=== PATIENT | female | born 1960 | race Caucasian/White ===

== ENCOUNTER 2016-10-26 10:06 | Emergency (ER) | payer OTHER ==
[~2016-10-26] VITALS: Ht 152.4 cm; Wt 81.0 kg
[~2016-10-26 10:06] MED LIST: KENC1 TOP; TRIA15OI9 TOP
[2016-10-26 10:07] VITALS: Ht 152.4 cm; Wt 81.0 kg
[2016-10-26 11:03] VITALS: BP 165/95; PULSE 78; RESP 18; TEMP 98
[2016-10-26] MEDS ORDERED: ONDANSETRON (ODT) 4 MG TAB ODT STA (11:11)
[2016-10-26] MEDS ORDERED: ONDA4TAB14 PO (11:12)
--- NOTE | 2016-10-26 13:37 | ERD ---
ER Documentation Chief Complaint Date/Time DATE: 10/26/16 TIME: 13:36 Chief Complaint ABD PAIN WITH N/V/D SINCE YESTERDAY POSSIBLE FOOD POISONING HPI Patient is a 56-year-old female with no medical problems who presents with vomiting. The patient says that she feels like she has food poisoning. She went to [employer] yesterday and had a coconut drink and ate a sausage cate which he sandwich. 30 minutes later she said she started vomiting. It was nonbloody and nonbilious. She said that she cannot keep anything down today either. She has mild diarrhea with loose stool. She has no fevers. She has had no abdominal pain. Upon review of old medical records this is the patient' s fourth visit to the ER since 2015. ROS All systems reviewed and are negative except as per history of present illness. Medications Home Meds Active Scripts Ondansetron (Ondansetron Odt) 4 Mg Tab.rapdis, 4 MG PO Q6H Y for NAUSEA AND/OR VOMITING, #30 TAB Prov:NELLY FLORES MD 10/26/16 Triamcinolone Acetonide (Triamcinolone Acetonide) 0.5% - 15 Gm Oint..gm., 1 APPLIC TOP BID, #1 TUB Prov:MARY JIMENES DO 06/14/16 Triamcinolone Acetonide (Triamcinolone Acetonide) 0.1% - 15 Gm Cream.gm., 1 APPLIC TOP BID, #1 TUB Prov:MARY JIMENES DO 06/14/16 Allergies Allergies: Coded Allergies: No Known Allergy (Unverified , 06/27/16) PMhx/Soc History of Surgery: No Anesthesia Reaction: No Hx Neurological Disorder: No Hx Respiratory Disorders: No Hx Cardiac Disorders: No Hx Psychiatric Problems: No Hx Miscellaneous Medical Probl: Yes (ECZEMA) Hx Alcohol Use: Yes (social) Hx Substance Use: No Hx Tobacco Use: No Smoking Status: Never smoker FmHx Family History: No diabetes Physical Exam Vitals Vital Signs Date Time Temp Pulse Resp B/P Pulse Ox O2 Delivery O2 Flow Rate FiO2 10/26/16 11:03 98.0 78 18 165/95 99 Room Air 10/26/16 10:07 98.0 87 18 165/95 99 Physical Exam Const: No acute distress Head: Atraumatic Eyes: Normal Conjunctiva ENT: Normal External Ears, Nose and Mouth. Neck: Full range of motion..~ No meningismus. Resp: Clear to auscultation bilaterally Cardio: Regular rate and rhythm, no murmurs Abd: Soft, non tender, non distended. Normal bowel sounds Skin: No petechiae or rashes Back: No midline or flank tenderness Ext: No cyanosis, or edema Neur: Awake and alert Psych: Normal Mood and Affect Results 24 hrs Current Medications Medications (Trade) Dose Ordered Sig/Eris Route PRN Reason Start Time Stop Time Status Last Admin Dose Admin Ondansetron HCl (Zofran Odt) 4 mg ONCE STAT ODT 10/26/16 11:11 10/26/16 11:12 DC 10/26/16 11:20 Procedures/MDM Patient is a 56-year-old female who presents with nausea and vomiting. The patient has no abdominal pain. She is very well-appearing and well-hydrated. I believe outpatient management is appropriate. This point I doubt appendicitis , cholecystitis, pink otitis, or bowel obstruction. I believe outpatient management is appropriate. However the patient will need to follow-up closely with a primary doctor within 24 hours for reevaluation. She will be given Zofran for symptomatically relief. Departure Diagnosis: Primary Impression: Nausea and vomiting Vomiting type: unspecified Vomiting Intractability: non-intractable Qualified Code: R11.2 - Non-intractable vomiting with nausea, unspecified vomiting type Condition: Fair Patient Instructions: Nausea and Vomiting-Adult Referrals: Dr. Stover Additional Instructions: Call your primary care doctor TOMORROW for an appointment during the next 1-2 days.See the doctor sooner or return here if your condition worsens before your appointment time. NELLY FLORES MD Oct 26, 2016 13:37
== END 2016-10-26 11:43 | disposition home or self-care (01) ==
LOC: E/R 10:06
DX: R11.2 Nausea with vomiting, unspecified (principal)
CPT/HCPCS: 99283

== ENCOUNTER 2016-11-21 13:29 | Emergency (ER) | payer OTHER ==
[~2016-11-21] VITALS: Ht 162.6 cm; Wt 72.0 kg
[~2016-11-21 13:29] MED LIST changes: +ONDA4TAB14 PO
[2016-11-21 13:51] VITALS: Ht 162.6 cm; Wt 72.0 kg
[2016-11-21] MEDS ORDERED: SOD CHLORIDE 0.9% 1,000 ML IV STA (17:59)
[2016-11-21] MEDS ORDERED: DICLOFENAC SODIUM 37.5 MG/ML VIAL IV STA (17:59)
--- NOTE | 2016-11-21 18:12 | ERD ---
ER Documentation Chief Complaint Date/Time DATE: 11/21/16 TIME: 18:10 Chief Complaint Pt with exertional SOB and painful inspiration X 2 days. HPI This is a very pleasant 56-year-old -[place] female with no past medical history that presents to the emergency department complaining of shortness of breath for the past 2 days. The patient indicates that the shortness of breath is worse with exertion. She states she can only walk a few steps before becoming short of breath. She also indicates that she is experiencing pleuritic chest pain in addition to the shortness of breath. She denies any recent travel or prolonged immobilization. She has no calf tenderness or swelling. She has had no fevers no shaking or chills. She smokes roughly 1 pack of tobacco per month. She has not experienced any hemoptysis hematemesis or melanotic stools. She denies any weight loss. She denies any swelling of her lower extremities. She denies any rashes. She has no chest pressure that radiates to the neck arm back or jaw peer ROS All systems reviewed and are negative except as per history of present illness. Medications Home Meds Reported Medications Aspirin (Aspirin Low Dose) 81 Mg Tablet.dr, 81 MG PO DAILY, #30 TAB 11/21/16 Ranitidine Hcl* (Zantac*) Unknown Strength Tablet, MG PO HS, #30 TAB 11/21/16 Discontinued Scripts Ondansetron (Ondansetron Odt) 4 Mg Tab.rapdis, 4 MG PO Q6H Y for NAUSEA AND/OR VOMITING, #30 TAB Prov:NELLY FLORES MD 10/26/16 Triamcinolone Acetonide (Triamcinolone Acetonide) 0.5% - 15 Gm Oint..gm., 1 APPLIC TOP BID, #1 TUB Prov:MARY JIMENES DO 06/14/16 Triamcinolone Acetonide (Triamcinolone Acetonide) 0.1% - 15 Gm Cream.gm., 1 APPLIC TOP BID, #1 TUB Prov:MARY JIMENES DO 06/14/16 Allergies Allergies: Coded Allergies: No Known Allergy (Unverified , 11/21/16) PMhx/Soc History of Surgery: No Anesthesia Reaction: No Hx Neurological Disorder: No Hx Respiratory Disorders: No Hx Cardiac Disorders: No Hx Psychiatric Problems: No Hx Miscellaneous Medical Probl: Yes (ECZEMA) Hx Alcohol Use: Yes (social) Hx Substance Use: No Hx Tobacco Use: No Physical Exam Vitals Vital Signs Date Time Temp Pulse Resp B/P Pulse Ox O2 Delivery O2 Flow Rate FiO2 11/21/16 18:30 98.3 18 135/95 98 Room Air 11/21/16 13:51 98.3 85 14 142/88 98 Physical Exam Constitutional:Well-developed. Well-nourished. HEENT:Normocephalic. Atraumatic.Pupils were equal round reactive to light. Moist mucous membranes.No tonsillar exudates. Neck: No nuchal rigidity. No lymphadenopathy. No posterior cervical spine tenderness or step-offs. Respiratory: Not using accessory muscles of respiration.Lungs were clear to auscultation bilaterally. No rhonchi. No rales. No wheezing. Cardiovascular: Regular rate regular rhythm.No murmurs. No rubs were appreciated.S1, S2 normal. Distal pulses are palpable 2+ bilaterally. GI: Abdomen was soft. Nontender. Non Distended. No pulsatile abdominal masses or bruits. No rebound. No guarding. Bowel sounds were present and normal. Muscle skeletal: Full range of motion of both the upper and lower extremities bilaterally.Normal muscle tone.No assymetrical calf tenderness or swelling. Skin: No petechia, no purpura. No lesions on the palms or the soles of the feet. No maculopapular rash. NEURO: Patient was alert, awake, orientated x3.No facial droop. Gait observed and normal with no ataxia.Speech had regular rate and rhythm. No focal neurological deficits. Result Diagram: 11/21/16181911/21/161819 Results 24 hrs Laboratory Tests Test 11/21/16 18:20 White Blood Count 7.010^3/ul Red Blood Count 4.3010^6/ul Hemoglobin 14.3g/dl Hematocrit 41.5% Mean Corpuscular Volume 96.5fl Mean Corpuscular Hemoglobin 33.3pg Mean Corpuscular Hemoglobin Concent 34.5g/dl Red Cell Distribution Width 14.0% Platelet Count 28257^3/UL Mean Platelet Volume 9.9fl Neutrophils % 56.5% Lymphocytes % 32.2% Monocytes % 5.7% Eosinophils % 4.7% Basophils % 0.6% Nucleated Red Blood Cells % 0.0/100WBC Neutrophils # 4.010^3/ul Lymphocytes # 2.310^3/ul Monocytes # 0.410^3/ul Eosinophils # 0.310^3/ul Basophils # 0.010^3/ul Nucleated Red Blood Cells # 0.010^3/ul Prothrombin Time 12.6Sec Prothrombin Time Ratio 1.0 INR International Normalized Ratio 0.94 Activated Partial Thromboplast Time 25.6Sec Sodium Level 143mmol/L Potassium Level 4.0mmol/L Chloride Level 103mmol/L Carbon Dioxide Level 26mmol/L Anion Gap 18 Blood Urea Nitrogen 16mg/dl Creatinine 0.69mg/dl Glucose Level 129mg/dl Calcium Level 9.8mg/dl Total Bilirubin 0.2mg/dl Direct Bilirubin 0.00mg/dl Indirect Bilirubin 0.2mg/dl Aspartate Amino Transf (AST/SGOT) 27IU/L Alanine Aminotransferase (ALT/SGPT) 30IU/L Alkaline Phosphatase 99IU/L Creatine Kinase 89IU/L Creatine Kinase Index 0.7 Creatinine Kinase MB (Mass) 0.58ng/ml Troponin I < 0.012ng/ml B-Type Natriuretic Peptide 33PG/ML Total Protein 10.3g/dl Albumin 4.7g/dl Globulin 5.60g/dl Albumin/Globulin Ratio 0.83 Current Medications Medications (Trade) Dose Ordered Sig/Eris Route PRN Reason Start Time Stop Time Status Last Admin Dose Admin Sodium Chloride (NS) 1,000 ml @ 1,000 mls/hr Q1H STAT IV 11/21/16 17:59 11/21/16 18:58 DC 11/21/16 18:43 Diclofenac Sodium (Dyloject) 37.5 mg ONCE STAT IV 11/21/16 17:59 11/21/16 18:09 DC 11/21/16 18:43 IV Flush 10 ml 10 ml STK-MED ONCE .ROUTE 11/21/16 20:17 11/21/16 20:18 DC 11/21/16 20:42 Sodium Chloride 100 ml @ ud STK-MED ONCE .ROUTE 11/21/16 20:17 11/21/16 20:18 DC Iohexol 0 ml @ ud STK-MED ONCE .ROUTE 11/21/16 20:17 11/21/16 20:18 DC Iohexol (Omnipaque) 100 ml @ ud STK-MED ONCE .ROUTE 11/21/16 20:17 11/21/16 20:18 DC IV Flush 10 ml 10 ml STK-MED ONCE .ROUTE 11/21/16 20:18 11/21/16 20:19 DC Sodium Chloride (NS) 100 ml @ ud STK-MED ONCE .ROUTE 11/21/16 20:18 11/21/16 20:19 DC 11/21/16 20:42 Iohexol (Omnipaque 350mg/ ml) 50 ml STK-MED ONCE .ROUTE 11/21/16 20:18 11/21/16 20:19 DC 11/21/16 20:43 IV Flush (NS 10 ml) 10 ml STK-MED ONCE .ROUTE 11/21/16 20:19 11/21/16 20:20 DC Procedures/MDM The patient presented to the emergency department with shortness of breath. My differential diagnosis included but was not limited to upper airway obstruction , CHF, pulmonary embolism, cardiac ischemia, pneumonia, pneumothorax, anemia, drug overdose, pulmonary edema, COPD or asthma. Patient placed on a director of cardiac cath lab continuous pulse oximetry and IV access was assessed by nursing staff. 12 Lead EKG tracing ordered and reviewed by myself showed: Normal sinus rhythm of 86 bpm and no arrhythmia. SD interval normal. Left axis deviation QRS duration normal. No ST segment elevation No ST segment depression. No changes consistent with acute ischemia. I did feel is necessary to obtain a CT scan of the patient's chest to rule out a pulmonary embolism. This is read by the radiologist myself and indicated followin. No CT evidence for pulmonary embolus. 2. Bibasilar scarring and right posterior medial 1.6 cm bleb 3. Mild cardiomegaly 4. Mild diffuse fatty infiltration of the liver 5. Small 5 mm left upper pole renal cortical cyst Observation Note: Time: 4 hours Family Hx: No Hypertension Evaluation: Multiple exams showed improving symptoms and no evidence of pulmonary embolism and I did feel the patient's symptoms were likely result of pleurisy. She received Toradol with significant improvement of her symptoms. The patient was discharged home in fair condition. They were instructed to return to the emergency department at any time if there was any worsening of their condition. The patient stated they would follow up with their PCP in the next 24-48 hours to initiate a suitable medication regimen under the care of their PCP as well as to allow their PCP to monitor any drug reactions. The patient was discharged home with prescriptions after they gave informed consent to the new medication. They were also fully informed by myself on the adverse effects and adverse drug interactions in order to provide adequate safeguards to prevent possible adverse reactions to medications. Departure Diagnosis: Primary Impression: Pleurisy Condition: LUISA Adan November 21, 2016 18:12
[2016-11-21 18:32] LABS: ADD SCAN DIFF NO
[2016-11-21 18:36] LABS: BASOPHILS % 0.6 % (0.0-2.0); EOSINOPHILS # 0.3 10^3/ul (0.0-0.5); EOSINOPHILS % 4.7 % (0.0-7.0); HEMATOCRIT 41.5 % (37.0-47.0); HEMOGLOBIN 14.3 g/dl (12.0-16.0); LYMPHOCYTES # 2.3 10^3/ul (0.8-2.9); LYMPHOCYTES % 32.2 % (15.0-51.0); MEAN CORPUSCULAR HEMOGLOBIN 33.3 pg (29.0-33.0); MEAN CORPUSCULAR HGB CONC 34.5 g/dl (32.0-37.0); MEAN CORPUSCULAR VOLUME 96.5 fl (82.0-101.0); MEAN PLATELET VOLUME 9.9 fl (7.4-10.4); MONOCYTE # 0.4 10^3/ul (0.3-0.9); MONOCYTES % 5.7 % (0.0-11.0); NEUTROPHILS % 56.5 % (39.0-77.0); PLATELET COUNT 285 10^3/UL (140-415)
[2016-11-21 18:48] LABS: ALBUMIN 4.7 g/dl (3.3-4.9); CHLORIDE 103 mmol/L (97-110); SODIUM 143 mmol/L (135-144)
[2016-11-21 18:50] LABS: ANION GAP 18 (8-16); ASPARTATE AMINO TRANSFERASE 27 IU/L (15-46); BILIRUBIN,INDIRECT 0.2 mg/dl (0-1.1); BILIRUBIN,TOTAL 0.2 mg/dl (0.2-1.3); CARBON DIOXIDE 26 mmol/L (21-31); CREATININE 0.69 mg/dl (0.44-1.00)
[2016-11-21] MEDS ORDERED: RANI150T9 PO (18:50)
[2016-11-21] MEDS ORDERED: ASPI-664 PO (18:50)
[2016-11-21 18:51] LABS: ALANINE AMINOTRANSFERASE 30 IU/L (13-69); ALBUMIN/GLOBULIN RATIO 0.83; ALKALINE PHOSPHATASE 99 IU/L (42-121); BLOOD UREA NITROGEN 16 mg/dl (7-20); CALCIUM 9.8 mg/dl (8.4-10.2); CREATINE KINASE 89 IU/L (23-200); GLUCOSE 129 mg/dl (70-220); TOTAL PROTEIN 10.3 g/dl (6.1-8.1)
[2016-11-21 18:59] LABS: B-TYPE NATRIURETIC PEPTIDE 33 PG/ML (0-125); CK-MB 0.58 ng/ml (0.0-2.4)
[2016-11-21 19:01] LABS: INR 0.94; PARTIAL THROMBOPLASTIN TIME 25.6 Sec (25.0-35.0); PROTIME 12.6 Sec (12.2-14.2)
[2016-11-21 19:04] LABS: TROPONIN-I < 0.012 ng/ml (0.00-0.12)
[2016-11-21] MEDS ORDERED: IOHEXOL 0 ML ONE (20:17)
[2016-11-21] MEDS ORDERED: SOD CHLORIDE 0.9% 100 ML ONE ×2 (20:17→20:18)
[2016-11-21] MEDS ORDERED: IOHEXOL 100 ML ONE (20:17)
[2016-11-21] MEDS ORDERED: IOHEXOL 350MG/ML 50 ML BTL ONE (20:18)
--- NOTE | 2016-11-21 21:20 | RADRPT ---
PROCEDURE: CTA Chest and pulmonary angiogram. CLINICAL INDICATION: Chest pain and shortness of breath. TECHNIQUE: CT scan of the chest and CT pulmonary angiogram was performed on a multidetector high-r [employer] home renov[employer] CT scanner. High-resolution thin slice coronal and sagittal imaging was obtained from the axial source images. 3-D volumetric rendered post processing was performed as well. The patient w as examined following the uncomplicated intravenous administration of 100 cc of Omnipaque-300. The i mages were reviewed on a PACS workstation. The total exam CTDI equals 60.63 mGy, and the total exam DLP equals 404.10 mGy-cm. One of the following 3 dose reduction techniques were used during this CT examination: automated exp osure control; adjustment of the mA and /or kV according to patient size; or use of iterative recons truciton technique COMPARISON: Chest x-ray 06/27/2016 FINDINGS: CT chest: The visualized base of the neck and bilateral thyroid lobes are normal. The lungs are free of pulmonary nodules, infiltrates, masses, and effusions. Bibasilar scarring is present. A right posterior medial bleb is present which measures 1.6 cm in AP dimensions. No foca l opacification, effusion, pneumothorax, edema, or nodules are seen. The central tracheobronchial t ree is clear. The mediastinum demonstrates small prevascular space nonpathologic lymph adenopathy. The vascular s tructures of the mediastinum are normal in course and caliber. The heart size is remarkable for mil d cardiomegaly. No pericardial or pleural effusions are present. The axillary, subpectoral, and arechiga praclavicular regions are unremarkable. The surrounding chest wall is unremarkable. Imaging obtained through the upper abdomen is remarkable for mild fatty infiltration of the liver. The visualized spleen, pancreas, bilateral adrenal glands are normal. The imaged kidneys demonstrat e a small 5 mm left upper pole renal cortical cyst. CT pulmonary angiogram: No thrombus, clot, filling defect, or pulmonary web is identified. The pulmonary arteries are qiana l in caliber and morphology. No filling defect is present to suggest pulmonary embolism. There is no evidence for pulmonary arterial hypertension. IMPRESSION: 1. No CT evidence for pulmonary embolus. 2. Bibasilar scarring and right posterior medial 1.6 cm bleb 3. Mild cardiomegaly 4. Mild diffuse fatty infiltration of the liver 5. Small 5 mm left upper pole renal cortical cyst RPTAT: HDC .Steph Judge MD, Date Time Electronically viewed and signed by .Steph Judge MD, on 11/21/2016 21:20 .C/
[2016-11-21] MEDS ORDERED: NAPR-260 PO (22:10)
[2016-11-21] MEDS ORDERED: TRIA60LO10 TOP (22:22)
[2016-11-21] MEDS ORDERED: KENC1 TOP (22:22)
[2016-11-21 22:35] VITALS: BP 173/125; PULSE 89; RESP 16; TEMP 98.1
== END 2016-11-21 22:36 | disposition home or self-care (01) ==
LOC: E/R 13:29
DX: R09.1 Pleurisy (principal); R40.2252 Coma scale, best verbal response, oriented, at arrival to emergency department; Z79.82 Long term (current) use of aspirin
CPT/HCPCS: 71275; 80053; 82550; 82553; 83880; 84484; 85025; 85610; 85730; 93005; 96374; J7030; Q9967; Z7502; Z7610

== ENCOUNTER 2017-02-16 10:05 | Emergency (ER) | payer OTHER ==
[~2017-02-16] VITALS: Wt 81.0 kg
[~2017-02-16 10:05] MED LIST changes: +ASPI-664 PO; -KENC1 TOP; +NAPR-260 PO; -ONDA4TAB14 PO; +RANI150T9 PO; +TRIA15CR55 TOP; -TRIA15OI9 TOP; +TRIA60LO10 TOP
[2017-02-16] MEDS ORDERED: IPRATROPIUM (NEB) 0.5 MG/2.5 ML AMP NEB STA (10:27)
[2017-02-16] MEDS ORDERED: ALBUTEROL 0.083% (NEB) 2.5 MG/3 ML AMP NEB STA (10:27)
[2017-02-16] MEDS ORDERED: FLUT9.9S NASAL (11:06)
[2017-02-16] MEDS ORDERED: CETI10CA PO (11:06)
--- NOTE | 2017-02-16 11:35 | ERD ---
ER Documentation Chief Complaint Date/Time DATE: 02/16/17 TIME: 11:32 Chief Complaint COUGH HIS THIS AM HPI This is a 56-year-old female who presents the emergency department today complaining of a cough that started this morning. States she took Mucinex and Zyrtec. Denies cigarette smoking, fevers or chills. ROS All systems reviewed and are negative except as per history of present illness. Medications Home Meds Active Scripts Cetirizine Hcl* (Zyrtec*) 10 Mg Capsule, 10 MG PO DAILY, #14 TAB.CHEW Prov:MYNOR CORTES PA-C 02/16/17 Fluticasone Propionate (Flonase Allergy Relief) 9.9 Ml [place].susp, 1 SPRAY NASAL BID, #1 BOTTLE TO EACH NOSTRIL Prov:MYNOR CORTES PA-C 02/16/17 Triamcinolone Acetonide* (Kenalog*) 0.25%-60 Ml Lotion, 1 APPLIC TOP BID, #1 BOTTLE Prov:LUISA MARTINEZ 11/21/16 Triamcinolone Acetonide* (Kenalog*) 0.1%-15GM Cr, 1 APPLIC TOP BID, #1 TUB Prov:LUISA MARTINEZ 11/21/16 Naproxen* (Naprosyn*) 500 Mg Tablet, 500 MG PO BID Y for PAIN AND/OR INFLAMMATION, #30 TAB Prov:LUISA MARTINEZ 11/21/16 Reported Medications Aspirin (Aspirin Low Dose) 81 Mg Tablet.dr, 81 MG PO DAILY, #30 TAB 11/21/16 Ranitidine Hcl* (Zantac*) Unknown Strength Tablet, MG PO HS, #30 TAB 11/21/16 Allergies Allergies: Coded Allergies: No Known Allergy (Unverified , 02/16/17) PMhx/Soc Medical and Surgical Hx: pt denies Surgical Hx History of Surgery: No Anesthesia Reaction: No Hx Neurological Disorder: No Hx Respiratory Disorders: No Hx Cardiac Disorders: No Hx Psychiatric Problems: No Hx Miscellaneous Medical Probl: Yes (ECZEMA) Hx Alcohol Use: Yes (social) Hx Substance Use: No Hx Tobacco Use: No Physical Exam Vitals Vital Signs Date Time Temp Pulse Resp B/P Pulse Ox O2 Delivery O2 Flow Rate FiO2 02/16/17 10:42 90 18 99 21 02/16/17 10:12 98.9 90 18 172/81 99 Physical Exam Const: Talkative, no acute distress Head: Atraumatic Eyes: Normal Conjunctiva ENT: Ears TMs normal. Nose no drainage. Throat no erythema no exudate. Drainage posterior for Neck: Full range of motion..~ No meningismus. Resp: Clear to auscultation bilaterally. No absent breath sounds. No wheezing Cardio: Regular rate and rhythm, no murmurs Skin: No petechiae or rashes Back: No midline or flank tenderness Ext: No cyanosis, or edema Neur: Awake and alert Psych: Normal Mood and Affect Results 24 hrs Current Medications Medications (Trade) Dose Ordered Sig/Eris Route PRN Reason Start Time Stop Time Status Last Admin Dose Admin Albuterol (Proventil 0.083% (Neb)) 5 mg ONCE STAT NEB 02/16/17 10:27 02/16/17 10:28 DC 02/16/17 10:41 Ipratropium [place] (Atrovent 0.02% (Neb)) 0.5 mg ONCE STAT NEB 02/16/17 10:27 02/16/17 10:28 DC 02/16/17 10:41 Procedures/MDM This 56-year-old female presents emergency department today complaining of a cough that started this morning. Patient is afebrile and otherwise well- appearing. Patient was complaining with some pain with inspiration and therefore did offer to obtain a chest x-ray however she has declined at this time. Patient was coughing in the exam room and I did give her a breathing treatment here in the emergency department and patient reported feeling better after that. In speaking with the patient she does appear to have some nasal congestion. Her cough may be related to allergy related symptoms I do have low suspicion for pneumonia, PE, abscess, pleural effusion, pneumothorax. Patient was instructed to continue taking her Zyrtec. I did give her prescription for Flonase. She may also continue taking her Mucinex. I did explain to the patient that she may return at any time if her cough does not improve or she feels short of breath. Patient understood At this time the patient is stable for discharge and outpatient management. Patient should follow up with their PCP in the next 1-2 days. They may return to the emergency department sooner for any persistent or worsening of symptoms. Patient understood and agreed with the plan. Departure Diagnosis: Primary Impression: Cough Condition: Fair Patient Instructions: Preventing Common Respiratory Infections Additional Instructions: Call your primary care doctor TOMORROW for an appointment during the next 1-2 days.See the doctor sooner or return here if your condition worsens before your appointment time. Continue taking her Zyrtec as prescribed Take Flonase as prescribed Okay to continue taking Mucinex MYNOR CORTES PA-C Feb 16, 2017 11:35
== END 2017-02-16 11:24 | disposition home or self-care (01) ==
LOC: FTE 10:05
DX: R05 Cough (principal); Z79.82 Long term (current) use of aspirin
CPT/HCPCS: 94664; Z7502; Z7610

== ENCOUNTER 2017-10-25 09:31 | Emergency (ER) | END 2017-10-25 11:30 | disposition home or self-care (01) ==

== ENCOUNTER 2018-09-06 13:18 | Emergency (ER) | payer OTHER ==
[~2018-09-06] VITALS: Wt 74.7 kg
[~2018-09-06 13:18] MED LIST changes: +ALBU18HF INHALATION; -ASPI-664 PO; +ASPI-818 PO; +CETI10CA PO; +FLUT9.9S NASAL; +GUAI118L22 PO; -NAPR-260 PO; +NAPR-985 PO; +PRED20TA PO; +RANI150T35 PO; -RANI150T9 PO
[2018-09-06 15:22] VITALS: BP 127/78; PULSE 91; RESP 18
--- NOTE | 2018-09-06 17:41 | ERD ---
ER Documentation Chief Complaint Chief Complaint DIZZINESS X 4 DAYS HPI Patient is a 58-year-old female with hypertension and diabetes who presents with diarrhea and dizziness. She said that she started a new medication lisinopril on Sunday and right after she started this medication she started having the symptoms. She denies slurred speech or weakness to her arms or legs. She denies chest pain or shortness of breath. She has continued to take the medicine but has not had no other treatment otherwise. Upon review of old medical records this is the patient's eighth visit to the ER since 2016. She does have a primary doctor. ROS All systems reviewed and are negative except as per history of present illness. Medications Home Meds Active Scripts Guaifenesin/Codeine Phosphate (CHERATUSSIN AC SYRUP) 118 Ml [place], 5 ML PO Q4H PRN for COUGH, #118 ML Prov:HERLINDA RAMIREZ PA-C 10/25/17 Albuterol Sulfate* (Ventolin HFA*) 18 Gm Hfa.aer.ad, 2 PUFF INHALATION Q4H, #1 INHALER Prov:HERLINDA RAMIREZ PA-C 10/25/17 Fluticasone Propionate (Flonase Allergy Relief) 9.9 Ml [place].susp, 1 SPRAY NASAL BID, #1 BOTTLE TO EACH NOSTRIL Prov:HERLINDA RAMIREZ PA-C 10/25/17 Prednisone* (Prednisone*) 20 Mg Tab, 40 MG PO DAILY for 5 Days, TAB Prov:HERLINDA RAMIREZ PA-C 10/25/17 Cetirizine Hcl* (Zyrtec*) 10 Mg Capsule, 10 MG PO DAILY, #14 TAB.CHEW Prov:MYNOR CORTES PA-C 02/16/17 Fluticasone Propionate (Flonase Allergy Relief) 9.9 Ml [place].susp, 1 SPRAY NASAL BID, #1 BOTTLE TO EACH NOSTRIL Prov:MYNOR CORTES PA-C 02/16/17 Triamcinolone Acetonide* (Kenalog*) 0.25%-60 Ml Lotion, 1 APPLIC TOP BID, #1 BOTTLE Prov:LUISA MARTINEZ MD 11/21/16 Triamcinolone Acetonide* (Kenalog*) 0.1%-15GM Cr, 1 APPLIC TOP BID, #1 TUB Prov:LUISA MARTINEZ MD 11/21/16 Naproxen* (Naprosyn*) 500 Mg Tablet, 500 MG PO BID PRN for PAIN AND/OR INFLAMMATION, #30 TAB Prov:LUISA MARTINEZ MD 11/21/16 Reported Medications Aspirin (Aspirin Low Dose) 81 Mg Tablet.dr, 81 MG PO DAILY, #30 TAB 11/21/16 Ranitidine Hcl* (Zantac*) Unknown Strength Tablet, MG PO HS, #30 TAB 11/21/16 Allergies Allergies: Coded Allergies: No Known Allergy (Unverified , 02/16/17) PMhx/Soc Medical and Surgical Hx: pt denies Medical Hx, pt denies Surgical Hx History of Surgery: No Anesthesia Reaction: No Hx Neurological Disorder: No Hx Respiratory Disorders: No Hx Cardiac Disorders: Yes (htn) Hx Psychiatric Problems: No Hx Miscellaneous Medical Probl: Yes (ECZEMA, DM) Hx Alcohol Use: Yes (social) Hx Substance Use: No Hx Tobacco Use: No Smoking Status: Never smoker FmHx Family History: No diabetes Physical Exam Vitals Vital Signs Date Temp Pulse Resp B/P (MAP) Pulse Ox O2 O2 Flow FiO2 Time Delivery Rate 09/06/18 91 18 127/78 97 Room Air 15:22 (94) 09/06/18 98.1 78 18 133/95 99 13:23 (108) Physical Exam Const: No acute distress Head: Atraumatic Eyes: Normal Conjunctiva ENT: Normal External Ears, Nose and Mouth. Neck: Full range of motion. No meningismus. Resp: Clear to auscultation bilaterally Cardio: Regular rate and rhythm, no murmurs Abd: Soft, non tender, non distended. Normal bowel sounds Skin: No petechiae or rashes Back: No midline or flank tenderness Ext: No cyanosis, or edema Neur: Awake and alert Psych: Normal Mood and Affect Procedures/MDM Patient is a 58-year-old female who presents with dizziness. I believe her symptoms are related to the new medication of lisinopril she started. I told her to stop the lisinopril and to follow-up with her primary doctor for further blood pressure medication management. At this point I doubt serious etiology such as acute coronary syndrome or stroke. I believe outpatient management is appropriate. She can return for any worsening symptoms. Departure Diagnosis: Primary Impression: Dizziness Condition: Fair Patient Instructions: Dizziness, Unk Cause Referrals: Your doctor Additional Instructions: Call your primary care doctor TOMORROW for an appointment during the next 1-2 days.See the doctor sooner or return here if your condition worsens before your appointment time. NELLY FLORES MD Sep 06, 2018 17:41
== END 2018-09-06 15:24 | disposition home or self-care (01) ==
LOC: E/R 13:18
DX: R42 Dizziness and giddiness (principal); I10 Essential (primary) hypertension; E11.9 Type 2 diabetes mellitus without complications; Z79.82 Long term (current) use of aspirin

== ENCOUNTER 2019-01-24 11:34 | Inpatient (IN) | payer OTHER ==
[~2019-01-24] VITALS: Ht 157.5 cm; Wt 66.9 kg
[2019-01-24 11:57] VITALS: Ht 157.5 cm; Wt 66.9 kg
[2019-01-24] MEDS ORDERED: SOD CHLORIDE 0.9% 1,000 ML IV STA (13:16)
[2019-01-24] MEDS ORDERED: BENZOCAINE 20% 56 ML SPRAY TOP PRN (13:30)
[2019-01-24] MEDS ORDERED: OMEP20CA16 PO (14:37)
[2019-01-24] MEDS ORDERED: METO-448 PO (14:38)
[2019-01-24] MEDS ORDERED: LISI-313 PO (14:39)
[2019-01-24] MEDS ORDERED: HYDR50TA15 PO (14:39)
[2019-01-24] MEDS ORDERED: POLY17PO6 PO (14:40)
[2019-01-24] MEDS ORDERED: METF500T24 PO (14:40)
[2019-01-24] MEDS ORDERED: TRIA15CR55 TOP (14:42)
[2019-01-24] MEDS ORDERED: KEN1O TOP (14:42)
[2019-01-24] MEDS ORDERED: HYDR30CR75 PR (14:43)
[2019-01-24] MEDS ORDERED: METR70GE15 VAG (14:44)
--- NOTE | 2019-01-24 14:59 | ERD ---
ER Documentation Chief Complaint Chief Complaint sent by pmd for abnormal labs , on chemo for breast ca , BUN 57 ,Creat 5.11 HPI 58-year-old female with a history of prediabetes, hypertension, and breast cancer undergoing chemotherapy sent by her primary care doctor for abnormal labs done yesterday. She was noted to have elevated BUN and creatinine which is new onset for the patient. She states that she has been having severe diarrhea due to the chemotherapy with nausea but no vomiting. She denies any associated abdominal pain, fever, chills. She is urinating normally but denies any dysuria. She does endorse poor p.o. intake due to the diarrhea and poor appetite. Of note she has been taking ibuprofen for her pain as well as metformin for prediabetes. ROS All systems reviewed and are negative except as per history of present illness. Medications Home Meds Reported Medications Metronidazole* (Metrogel* Vaginal) 0.75% -70 Gram Gel.w.appl, 1 APPFUL VAG HS, TUB 01/24/19 Hydrocortisone Acetate* (Anusol-HC*) 30 Gm Cream.gm., 1 APPLIC MN BID, TUB OR QID NEEDED 01/24/19 Triamcinolone Acetonide* (Kenalog*) 0.1%-15GM Oint, 1 APPLIC TOP BID, #1 EA 01/24/19 Triamcinolone Acetonide* (Kenalog*) 0.1%-15GM Cr, 1 APPLIC TOP BID, #1 TUB 01/24/19 Polyethylene Glycol* (Miralax*) 17 Gm Powd.pack, 17 GM PO DAILY, #30 PACKET 01/24/19 Metformin Hcl* (Metformin Hcl*) 500 Mg Tablet, 500 MG PO WITH BREAKFAST DINNE, #60 TAB 01/24/19 Lisinopril* (Lisinopril*) 5 Mg Tablet, 5 MG PO DAILY, #30 TAB 01/24/19 Hydroxyzine Hcl* (Hydroxyzine Hcl*) 50 Mg Tablet, 50 MG PO DAILY PRN for ITCHING, #30 TAB 01/24/19 Metoprolol Tartrate* (Lopressor*) 25 Mg Tab, 25 MG PO BID, #60 TAB 01/24/19 Omeprazole* (Omeprazole*) 20 Mg Capsule.dr, 20 MG PO QPM, #30 CAP 01/24/19 Discontinued Reported Medications Aspirin (Aspirin Low Dose) 81 Mg Tablet.dr, 81 MG PO DAILY, #30 TAB 11/21/16 Ranitidine Hcl* (Zantac*) Unknown Strength Tablet, MG PO HS, #30 TAB 11/21/16 Discontinued Scripts Guaifenesin/Codeine Phosphate (CHERATUSSIN AC SYRUP) 118 Ml Liquid, 5 ML PO Q4H PRN for COUGH, #118 ML Prov:HERLINDA ATKINS PA-C 10/25/17 Albuterol Sulfate* (Ventolin HFA*) 18 Gm Hfa.aer.ad, 2 PUFF INHALATION Q4H, #1 INHALER Prov:HERLINDA AKTINS PA-C 10/25/17 Fluticasone Propionate (Flonase Allergy Relief) 9.9 Ml [place].susp, 1 SPRAY NASAL BID, #1 BOTTLE TO EACH NOSTRIL Prov:HERLINDA ATKINS PA-C 10/25/17 Prednisone* (Prednisone*) 20 Mg Tab, 40 MG PO DAILY for 5 Days, TAB Prov:HERLINDA ATKINS PA-C 10/25/17 Cetirizine Hcl* (Zyrtec*) 10 Mg Capsule, 10 MG PO DAILY, #14 TAB.CHEW Prov:MYNOR CORTES PA-C 02/16/17 Fluticasone Propionate (Flonase Allergy Relief) 9.9 Ml [place].susp, 1 SPRAY NASAL BID, #1 BOTTLE TO EACH NOSTRIL Prov:MYNOR CORTES PA-C 02/16/17 Triamcinolone Acetonide* (Kenalog*) 0.25%-60 Ml Lotion, 1 APPLIC TOP BID, #1 BOTTLE Prov:LUISA MARTINEZ MD 11/21/16 Triamcinolone Acetonide* (Kenalog*) 0.1%-15GM Cr, 1 APPLIC TOP BID, #1 TUB Prov:LUISA MARTINEZ MD 11/21/16 Naproxen* (Naprosyn*) 500 Mg Tablet, 500 MG PO BID PRN for PAIN AND/OR INFLAMMATION, #30 TAB Prov:LUISA MARTINEZ MD 11/21/16 Allergies Allergies: Coded Allergies: No Known Allergy (Unverified , 01/24/19) PMhx/Soc History of Surgery: Yes (Port-a-cath) Anesthesia Reaction: No Hx Neurological Disorder: No Hx Respiratory Disorders: No Hx Cardiac Disorders: Yes (htn) Hx Psychiatric Problems: No Hx Miscellaneous Medical Probl: Yes (ECZEMA, DM, breast CA) Hx Alcohol Use: Yes (social) Hx Substance Use: No Hx Tobacco Use: No Smoking Status: Never smoker FmHx Family History: diabetes Physical Exam Vitals Vital Signs Date Temp Pulse Resp B/P (MAP) Pulse Ox O2 O2 Flow FiO2 Time Delivery Rate 01/24/19 98.1 56 18 116/66 99 11:57 (83) Physical Exam Const: No acute distress Head: Atraumatic Eyes: Normal Conjunctiva ENT: Normal External Ears, Nose and Mouth. Neck: Full range of motion. No meningismus. Resp: Clear to auscultation bilaterally Cardio: Regular rate and rhythm, no murmurs Abd: Soft, non tender, non distended. Normal bowel sounds Skin: No petechiae or rashes Back: No midline or flank tenderness Ext: No cyanosis, or edema Neur: Awake and alert Psych: Normal Mood and Affect Result Diagram: 01/24/19 1333 01/24/19 1333 Results 24 hrs Laboratory Tests Test 01/24/19 13:33 01/24/19 14:09 White Blood Count 9.7 10^3/ul Red Blood Count 3.92 10^6/ul Hemoglobin 12.1 g/dl Hematocrit 36.0 % Mean Corpuscular Volume 91.8 fl Mean Corpuscular Hemoglobin 30.9 pg Mean Corpuscular Hemoglobin Concent 33.6 g/dl Red Cell Distribution Width 14.6 % Platelet Count 324 10^3/UL Mean Platelet Volume 9.5 fl Immature Granulocytes % 5.100 % Neutrophils % 57.1 % Lymphocytes % 28.8 % Monocytes % 8.7 % Eosinophils % 0.0 % Basophils % 0.3 % Nucleated Red Blood Cells % 0.0 /100WBC Immature Granulocytes # 0.500 10^3/ul Neutrophils # 5.5 10^3/ul Lymphocytes # 2.8 10^3/ul Monocytes # 0.9 10^3/ul Eosinophils # 0.0 10^3/ul Basophils # 0.0 10^3/ul Nucleated Red Blood Cells # 0.0 10^3/ul Sodium Level 144 mmol/L Potassium Level 4.3 mmol/L Chloride Level 106 mmol/L Carbon Dioxide Level 23 mmol/L Anion Gap 15 Blood Urea Nitrogen 61 mg/dl Creatinine 3.92 mg/dl Est Glomerular Filtrat Rate mL/min 12 mL/min Glucose Level 129 mg/dl Calcium Level 10.1 mg/dl Total Bilirubin 0.2 mg/dl Direct Bilirubin 0.00 mg/dl Indirect Bilirubin 0.2 mg/dl Aspartate Amino Transf (AST/SGOT) 26 IU/L Alanine Aminotransferase (ALT/SGPT) 14 IU/L Alkaline Phosphatase 82 IU/L Total Protein 9.3 g/dl Albumin 4.5 g/dl Globulin 4.80 g/dl Albumin/Globulin Ratio 0.93 Urine Color LUCA Urine Clarity CLOUDY Urine pH 5.0 Urine Specific [place] 1.019 Urine Ketones TRACE mg/dL Urine Nitrite NEGATIVE mg/dL Urine Bilirubin NEGATIVE mg/dL Urine Urobilinogen NEGATIVE mg/dL Urine Leukocyte Esterase NEGATIVE Simon/ul Urine Microscopic RBC 3 /HPF Urine Microscopic WBC 50 /HPF Urine Cellular Casts FEW /HPF Urine Hyaline Casts FEW /HPF Urine Mucus FEW /HPF Urine Hemoglobin NEGATIVE mg/dL Urine Glucose NEGATIVE mg/dL Urine Total Protein 1+ mg/dl Current Medications Medications Dose Sig/Eris Start Time Status Last (Trade) Ordered Route PRN Stop Time Admin Dose Reason Admin Sodium 1,000 ml @ Q1H STAT 01/24/19 DC 01/24/19 Chloride 1,000 mls/hr IV 13:16 01/24/19 13:52 14:15 Benzocaine 1 spray PRN PRN 01/24/19 (Dermoplast TOP vascular 13:30 [place]) access site Ondansetron 4 mg BRIDGE ORDER 01/24/19 HCl (Zofran PRN IV 15:00 01/25/19 Inj) NAUSEA/VOMITI 14:59 NG 650 mg ER BRIDGE 01/24/19 Acetaminophen PRN PO 15:00 01/25/19 (Tylenol .MILD PAIN 14:59 Tab) 1-3 OR TEMP Procedures/MDM EMERGENT LABS AND DIAGNOSTIC STUDIES: Lab Results above were reviewed and interpreted by me. CBC: no anemia or evidence of infection CMP: Evidence of elevated BUN and creatinine with no significant electrolyte abnormality or acidosis UA: Elevated WBCs, possibly due to infection. Patient asymptomatic. Culture pending Initial Nursing notes reviewed. Previous Medical Records requested via the Electronic Health Record. EMERGENCY DEPARTMENT COURSE / MEDICAL DECISION MAKING: Patient is presenting with abnormal labs yesterday, with e/o renal failure. This is likely multifactorial secondary to NSAID use, metformin use, dehydration, and possibly chemotherapy. She is urinating normally. No evidence of infection on exam. Doubt tumor lysis syndrome. However patient will require admission for further work-up. Started on IV fluids prior to her admission for dehydration. Accepting Care Team: Current data and ongoing care discussed. Time: Time of admission Primary Provider: Dr. Porfirio Atkins Departure Diagnosis: Primary Impression: Acute renal failure Acute renal failure type: unspecified Qualified Codes: N17.9 - Acute kidney failure, unspecified Additional Impressions: Breast cancer Breast location: unspecified site of breast Estrogen receptor status: unspecified Patient sex: female Laterality: unspecified laterality Qualified Codes: C50.919 - Malignant neoplasm of unspecified site of unspecified female breast Dehydration Chemotherapy induced diarrhea Condition: NATALIYA Irving MD Jan 24, 2019 14:59
[2019-01-24] MEDS ORDERED: ONDANSETRON 4 MG INJ IV PRN ×2 (15:00→16:30)
[2019-01-24] MEDS ORDERED: ACETAMINOPHEN 325 MG TAB PO PRN ×2 (15:00→16:30)
[2019-01-24 16:07] VITALS: BP 118/70; PULSE 63; RESP 20
[2019-01-24] MEDS ORDERED: HYDROCODONE/APAP (5/325) TAB PO PRN (16:30)
[2019-01-24] MEDS ORDERED: hydrOXYzine HCL 50 MG TAB PO PRN (16:30)
[2019-01-24] MEDS ORDERED: morphine 2 MG INJ IV PRN (16:30)
[2019-01-24] MEDS ORDERED: NACL 0.9% 3 ML SYG IV SCH (16:30)
--- NOTE | 2019-01-24 16:37 | HP ---
Date/Time of Note Date/Time of Note DATE: 01/24/19 TIME: 16:34 Assessment/Plan VTE Prophylaxis SCD applied (from Nsg): Yes Pharmacological prophylaxis: NA/contraindicated Pharm contraindication: low risk/ambulating Lines/Catheters IV Catheter Type (from Nrsg): Saline Lock Assessment/Plan Hospital Course Assessment and plan 1. Acute renal failure. Suspect polypharmacy (nephrotoxic agents) in combination with chemotherapy. Will adjust medications. Will start IV fluids. Renal consult to follow. Monitor renal panel. Will correct electrolytes as needed. 2. Suspect diabetes. Follow-up on A1c. Will switch metformin to Tradjenta for now. 3. Hypertension. Stop CARISSA inhibitors for now. Monitor on beta-elin. Will adjust antihypertensives as needed. 4. History of anxiety. Will provide with anxiolytics as needed. Discussed POC with Dr. Curtis Result Diagram: 01/24/19 1333 01/24/19 1333 Results 24hrs Laboratory Tests Test 01/24/19 13:33 01/24/19 14:09 White Blood Count 9.7 # Red Blood Count 3.92 L Hemoglobin 12.1 Hematocrit 36.0 L Mean Corpuscular Volume 91.8 Mean Corpuscular Hemoglobin 30.9 Mean Corpuscular Hemoglobin Concent 33.6 Red Cell Distribution Width 14.6 H Platelet Count 324 Mean Platelet Volume 9.5 Immature Granulocytes % 5.100 H Neutrophils % 57.1 Segmented Neutrophils % (Manual) 63 Band Neutrophils % (Manual) 3 Lymphocytes % 28.8 Lymphocytes % (Manual) 27 Monocytes % 8.7 Monocytes % (Manual) 5 Eosinophils % 0.0 Basophils % 0.3 Myelocytes % (Manual) 2 H Nucleated Red Blood Cells % 0.0 Immature Granulocytes # 0.500 H Neutrophils # 5.5 Neutrophils # (Manual) 6.1 Band Neutrophils # 0.2 Lymphocytes (Manual) 2.6 Lymphocytes # 2.8 Monocytes # 0.9 Monocytes # (Manual) 0.4 Eosinophils # 0.0 Basophils # 0.0 Myelocytes # 0.1 H Nucleated Red Blood Cells # 0.0 Platelet Estimate NORMAL Giant Platelets 1 H Polychromasia 3+ Sodium Level 144 Potassium Level 4.3 Chloride Level 106 Carbon Dioxide Level 23 Anion Gap 15 H Blood Urea Nitrogen 61 H Creatinine 3.92 H Est Glomerular Filtrat Rate mL/min 12 L Glucose Level 129 Calcium Level 10.1 Total Bilirubin 0.2 Direct Bilirubin 0.00 Indirect Bilirubin 0.2 Aspartate Amino Transf (AST/SGOT) 26 Alanine Aminotransferase (ALT/SGPT) 14 Alkaline Phosphatase 82 Total Protein 9.3 H Albumin 4.5 Globulin 4.80 H Albumin/Globulin Ratio 0.93 Urine Color LUCA Urine Clarity CLOUDY A Urine pH 5.0 Urine Specific [place] 1.019 Urine Ketones TRACE A Urine Nitrite NEGATIVE Urine Bilirubin NEGATIVE Urine Urobilinogen NEGATIVE Urine Leukocyte Esterase NEGATIVE Urine Microscopic RBC 3 Urine Microscopic WBC 50 H Urine Cellular Casts FEW A Urine Hyaline Casts FEW A Urine Mucus FEW A Urine Hemoglobin NEGATIVE Urine Glucose NEGATIVE Urine Total Protein 1+ H HPI/ROS Admit Date/Time Admit Date/Time Jan 24, 2019 at 14:46 Hx of Present Illness This is a 58-year-old female with history of prediabetes, hypertension, anemia, diagnosis of right breast cancer who was visiting her oncologist today for follow-up to have her labs reviewed and was prompted to go to the hospital for further evaluation of her kidney function. She states that her kidney function was normal prior to admission. She was told that possibly because of her medications at home combination with chemotherapy that her renal function has declined. She came to the hospital she was found to have creatinine of 3.92 and a BUN of 61 with estimated GFR of 12. She denies any dysuria or oliguria. She states that she has normal urination. She denies any chest pain or shortness of breath or increase swelling her legs. Denies any fevers or any other associated symptoms. We will evaluate for the aformentiond issues. ROS 12 point review of systems obtained and entirely negative except as mentioned in the history of present illness PMH/Family/Social Past Medical History Medical/surgical history 1. Reported prediabetes 2. hypertension 3. Anxiety 4. Right breast cancer Medications Current Medications Benzocaine (Dermoplast [place]) 1 spray PRN PRN TOP vascular access site; Start 01/24/19 at 13:30 Ondansetron HCl (Zofran Inj) 4 mg BRIDGE ORDER PRN IV NAUSEA/VOMITING Last administered on 01/24/19at 15:46; Admin Dose 4 MG; Start 01/24/19 at 15:00; Stop 01/25/19 at 14:59 Acetaminophen (Tylenol Tab) 650 mg ER BRIDGE PRN PO .MILD PAIN 1-3 OR TEMP; Start 01/24/19 at 15:00; Stop 01/25/19 at 14:59 Sodium Chloride 1,000 ml @ 75 mls/hr [id number] IV ; Start 01/24/19 at 16:07 IV Flush (NS 3 ml) 3 ml PER PROTOCOL IV ; Start 01/24/19 at 16:30 Ondansetron HCl (Zofran Inj) 4 mg Q6H PRN IV NAUSEA/VOMITING; Start 01/24/19 at 16:30 Acetaminophen (Tylenol Tab) 650 mg Q6H PRN PO .PAIN 1-3 OR TEMP; Start 01/24/19 at 16:30 Acetaminophen/ Hydrocodone Bitart ([place] (5/325)) 1 tab Q6H PRN PO .MOD PAIN 4- 6; Start 01/24/19 at 16:30 Morphine Sulfate (morphine) 2 mg Q4H PRN IV .SEVERE PAIN 7-10; Start 01/24/19 at 16:30 Famotidine (Pepcid Iv) 20 mg Q24H IV ; Start 01/24/19 at 21:00 Hydrocortisone (Proctozone-Hc) 1 applic BID IL ; Start 01/24/19 at 21:00; Status UNV Hydroxyzine HCl (Atarax) 50 mg DAILY PRN PO ITCHING; Start 01/24/19 at 16:30; Status UNV Metoprolol Tartrate (Lopressor) 25 mg BID PO ; Start 01/24/19 at 21:00; Status UNV Polyethylene Glycol (Miralax) 17 gm DAILY PO ; Start 01/25/19 at 09:00; Status U NV Miscellaneous Information 20 mg QPM PO ; Start 01/24/19 at 21:00; Status UNV Linagliptin (Tradjenta) 5 mg DAILY PO ; Start 01/25/19 at 09:00; Status UNV Diagnostic Test (Pha) (Accu-Chek) 1 ea AC MEALS AND BEDTIME XX ; Start 01/24/19 at 17:30; Status UNV Coded Allergies: No Known Allergy (Unverified , 01/24/19) Social History Alcohol Use: occasionally Smoking Status: Never smoker Drug Use: none Exam/Review of Systems Vital Signs Vitals Vital Signs Date Temp Pulse Resp B/P (MAP) Pulse Ox O2 O2 Flow FiO2 Time Delivery Rate 01/24/19 98.2 63 20 118/70 100 16:07 (86) 01/24/19 Room Air 15:53 Exam Constitutional: alert, oriented Psych: nl mood/affect Head: normocephalic Eyes: nl conjunctiva Respiratory: clear to auscultation, normal air movement Cardiovascular: regular rate and rhythm Gastrointestinal: soft, non-tender Musculoskeletal: nl extremities to inspection Neurological: PIPELINE EXECUTIVE II-XII intact, nl mental status, nl speech Skin: nl KVNG Baldwin NP Jan 24, 2019 16:37
[2019-01-24] MEDS: SOD CHLORIDE 0.9% 1,000 ML IV SCH (16:55)
[2019-01-24] MEDS: ACCU-CHEK XX SCH ×2 (17:30→21:00)
--- NOTE | 2019-01-24 17:49 | CONS ---
DATE OF ADMISSION: 01/24/2019 DATE OF CONSULTATION: 01/24/2019 TYPE OF CONSULTATION: Nephrology. REASON FOR CONSULTATION: Acute kidney injury. HISTORY OF PRESENT ILLNESS: This is a 58-year-old female with a past medical history of breast cance r on chemotherapy 3 times weekly, history of hypertension, history of diabetes, who presents to [facility] for abnormal labs and acute kidney injury. The patient states over the past 2 weeks she has had decreased oral intake. The patient also describes having copious amounts of diar choco. The patient stated at this time she has also had pain from her chemotherapy and has been takin g a high dose NSAIDs. The patient also takes lisinopril and metformin at home. She denies any hemop tysis, hematemesis, hematochezia. Denies any change in urinary output. Denies any hematuria. On ad mission to the emergency room, the patient had laboratory drawn that showed BUN of 61, creatinine 0.9 2. The patient was started on IV fluids and being admitted to med/surg for further evaluation. The patient denies any prior history of acute kidney injury or CKD. PAST MEDICAL HISTORY: History of hypertension, diabetes, history of breast cancer, history of eczema . PAST SURGICAL HISTORY: Status post Port-A-Cath placement, history of breast biopsy. FAMILY HISTORY: Positive for diabetes. ALLERGIES: NO KNOWN DRUG ALLERGIES. REVIEW OF SYSTEMS: A 14-point review of systems was conducted. Pertinent positives as stated in the HPI, otherwise negative. PHYSICAL EXAMINATION: VITAL SIGNS: Blood pressure is 118/70, respirations 20, pulse 63, temperature 98.2. HEENT: Head is normocephalic. NECK: Supple. HEART: Regular rate. LUNGS: Show diminished breath sounds at the base. ABDOMEN: Soft, nontender to palpation without guarding. EXTREMITIES: Negative for clubbing or cyanosis, no edema. DERMATOLOGIC: No rashes. MUSCULOSKELETAL: No joint effusions. NEUROLOGIC: No focal deficits. LABORATORY DATA: Has been reviewed. IMAGING STUDIES: Has been reviewed. ASSESSMENT AND PLAN: This is a 58-year-old female who presents with: 1. Nonoliguric acute kidney injury with previously normal baseline creatinine. Etiology is likely s econdary to hemodynamics, possible tubular injury, secondary to multifactorial etiologies, NSAID use, CARISSA inhibitor, volume depletion. The patient's renal function has slowly been improving with IV hyd ration. The patient's urinalysis does show evidence of cellular and consistent with prerenal e tiology. The possibility of interstitial nephritis is also a consideration as the patient has ongoin g pyuria. Recommendation at this point is to check a renal ultrasound to evaluate renal parenchyma. We will repeat urinalysis, we will calculate a FENa. Continue aggressive IV hydration and we will m onitor renal function closely. 2. Anemia. Monitor hemoglobin and hematocrit levels. 3. Mineral bone disorder, monitor calcium and phosphorus levels. Continue to monitor calcium and ph osphorus level. 4. Hypertension. The patient is currently normotensive. We would hold any CARISSA inhibitors or ARBs. Her blood pressure remains at this time. 5. History of diabetes. Continue Accu-Cheks, insulin sliding scale. 6. History of breast cancer, started on chemotherapy. Continue to monitor. 7. History of anxiety disorder. Continue to monitor. Thank you, Gary, for this interesting consult. It will be a pleasure to follow patient with jerry colesout the hospital course. Dictated By: PEDRITO SEXTON DO NR/NTS Conf#: [id number] DID#: [id number] CC: ALEX RAMIREZ MD;*EndCC*
[2019-01-24 19:56] VITALS: BP 127/70; PULSE 67; RESP 18
[2019-01-24] MEDS ORDERED: NON-FORMULARY/PATIENT OWN MED (Omeprazole* 20 MG) PO SCH (21:00)
[2019-01-24] MEDS: HYDROCORTISONE 2.5% 30 GM RECT CR PR SCH (21:00)
[2019-01-24] MEDS: METOPROLOL 25 MG TAB PO SCH (21:00)
[2019-01-24] MEDS: FAMOTIDINE 20 MG INJ IV SCH (21:02)
[2019-01-25 02:23] VITALS: BP 111/77; PULSE 63; RESP 20
[2019-01-25] MEDS: PANTOPRAZOLE (EC) 40 MG TAB PO SCH (05:59)
[2019-01-25] MEDS: SOD CHLORIDE 0.9% 1,000 ML IV SCH ×3 (06:00→21:22)
[2019-01-25] MEDS: ACCU-CHEK XX SCH ×4 (07:00→21:00)
[2019-01-25] MEDS: POLYETHYLENE GLYCOL 17 GM PACKET PO SCH (08:06)
[2019-01-25] MEDS: LINAGLIPTIN 5 MG TABLET PO SCH (08:08)
[2019-01-25] MEDS: METOPROLOL 25 MG TAB PO SCH ×2 (08:08→21:09)
[2019-01-25 08:13] VITALS: BP 127/83; PULSE 79; RESP 22
[2019-01-25] MEDS: HYDROCORTISONE 2.5% 30 GM RECT CR PR SCH ×2 (09:00→21:14)
--- NOTE | 2019-01-25 09:06 | PN ---
DATE: 01/25/2019 SUBJECTIVE: The patient is stable. No events overnight. No fevers, chills, nausea, vomiting. OBJECTIVE: VITAL SIGNS: Blood pressure is 127/83, respiration 22, pulse 79, temperature 99.0. HEENT: Head is normocephalic. NECK: Supple. HEART: Regular rate. LUNGS: Show diminished breath sounds at the base. ABDOMEN: Soft, nontender to palpation without rebound or guarding. EXTREMITIES: Negative for clubbing, cyanosis, no edema. DERMATOLOGIC: No rashes. MUSCULOSKELETAL: No joint effusion. NEUROLOGIC: No change in exam. MEDICATIONS: Reviewed. LABORATORY DATA: Has been reviewed. IMAGING STUDIES: Reviewed. ASSESSMENT AND PLAN: 1. Nonoliguric acute kidney injury with previously normal baseline creatinine. Etiology of acute ki dney injury is multifactorial secondary to volume depletion due to gastrointestinal loss, decreased o ral intake, CARISSA inhibitor, NSAID effect. The patient has a FENa less than 1% consistent with prerena l etiology. The patient has nonglomerular proteinuria. The patient's renal function has improved wi th IV hydration. Plan is to continue current treatment plan. Continue IV hydration. Continue suppo rtive care, renally dose all meds. 2. Metabolic acidosis secondary to acute kidney injury, IV fluids, continue to monitor. 3. Hypernatremia. Encourage free water intake. 4. Anemia. Monitor hemoglobin and hematocrit levels. 5. Mineral bone disorder. Monitor calcium and phosphorus levels. 6. Hypertension. The patient is currently hypotensive. Continue IV fluids. 7. History of diabetes. Continue Accu-Cheks, insulin sliding scale. 8. Breast cancer. The patient is on chemotherapy. Continue to monitor. 9. Anxiety disorder. Continue to monitor. Dictated By: PEDRITO SEXTON DO NR/NTS Conf#: [id number] DID#: [id number] CC: ALEX RAMIREZ MD;*EndCC*
[2019-01-25] MEDS ORDERED: MAGNESIUM SULFATE 2 GM/50 ML 50 ML IVPB ONE (10:00)
--- NOTE | 2019-01-25 14:13 | PN ---
Date/Time of Note Date/Time of Note DATE: 01/25/19 TIME: 14:08 Assessment/Plan VTE Prophylaxis Risk score (from Ns)>0 risk: 3 SCD applied (from Ns): Yes Pharmacological prophylaxis: NA/contraindicated Pharm contraindication: low risk/ambulating Lines/Catheters IV [facility]from [facility] A CATH Urinary Cath still in place: No Assessment/Plan Hospital Course Assessment and plan 1. Acute renal failure. Suspect polypharmacy (nephrotoxic agents). Renal consult following. Monitor renal panel. continue IVF 2. Suspect diabetes.On Tradjenta. a1c: 5.6 3. Hypertension. Stop CARISSA inhibitors for now. Monitor on beta-elin. Will adjust antihypertensives as needed. 4. History of anxiety. Will provide with anxiolytics as needed. DISPO/PLAN: continue current tx and IV hydration. Improving at present. d/c planning Discussed POC with Dr. Curtis Result Diagram: 01/25/19 0437 01/25/19 0437 Results 24hrs Laboratory Tests Test 01/24/19 14:09 01/24/19 17:38 01/24/19 20:55 01/25/19 04:37 Urine Color LUCA Urine Clarity CLOUDY A Urine pH 5.0 Urine Specific [place] 1.019 Urine Ketones TRACE A Urine Nitrite NEGATIVE Urine Bilirubin NEGATIVE Urine Urobilinogen NEGATIVE Urine Leukocyte Esterase NEGATIVE Urine Microscopic RBC 3 Urine Microscopic WBC 50 H Urine Cellular Casts FEW A Urine Hyaline Casts FEW A Urine Mucus FEW A Urine Hemoglobin NEGATIVE Urine Random Creatinine 469.83 H Urine Random Sodium < 13 L Urine Glucose NEGATIVE Urine Total Protein 39.0 H Bedside Glucose 102 108 White Blood Count 5.2 # Red Blood Count 3.47 L Hemoglobin 10.8 L Hematocrit 31.5 L Mean Corpuscular Volume 90.8 Mean Corpuscular 31.1 Hemoglobin Mean Corpuscular 34.3 Hemoglobin Concent Red Cell Distribution 14.6 H Width Platelet Count 264 Mean Platelet Volume 9.9 Immature Granulocytes % 4.000 H Neutrophils % 46.5 Lymphocytes % 36.2 Monocytes % 12.5 H Eosinophils % 0.2 Basophils % 0.6 Nucleated Red Blood 0.0 Cells % Immature Granulocytes # 0.210 H Neutrophils # 2.4 Lymphocytes # 1.9 Monocytes # 0.7 Eosinophils # 0.0 Basophils # 0.0 Nucleated Red Blood 0.0 Cells # Sodium Level 145 H Potassium Level 4.3 Chloride Level 115 H Carbon Dioxide Level 20 L Anion Gap 10 # Blood Urea Nitrogen 41 #H Creatinine 1.73 #H Est Glomerular Filtrat 30 L Rate mL/min Glucose Level 94 Hemoglobin A1c 5.7 Calcium Level 9.3 Phosphorus Level 3.3 Magnesium Level 1.5 L Total Bilirubin 0.2 Direct Bilirubin 0.00 Indirect Bilirubin 0.2 Aspartate Amino 21 Transf (AST/SGOT) Alanine 19 Aminotransferase (ALT/SG PT) Alkaline Phosphatase 63 Total Protein 7.0 # Albumin 3.5 # Globulin 3.50 H Albumin/Globulin Ratio 1.00 Triglycerides Level 258 H Cholesterol Level 187 LDL Cholesterol, 118 Calculated HDL Cholesterol 17 L Cholesterol/HDL Ratio 11.0 Thyroid Stimulating 0.408 L Hormone (TSH) Free Thyroxine Index 2.60 Thyroxine (T4) 6.2 Triiodothyronine (T3) 42.0 H Uptake Test 01/25/19 07:50 01/25/19 12:05 Bedside Glucose 96 109 Subjective 24 Hr Interval Summary Free Text/Dictation comfortable at present. no s/s of distress. no specific complaints Exam/Review of Systems Exam Vitals Vital Signs Date Temp Pulse Resp B/P (MAP) Pulse Ox O2 O2 Flow FiO2 Time Delivery Rate 01/25/19 99.0 79 22 127/83 97 08:13 (98) 01/24/19 Room Air 15:53 Intake and Output 01/24/19 01/24/19 01/25/19 1515:00 23:00 07:00 IntakeIntake Total 500 ml 200 ml BalanceBalance 500 ml 200 ml Exam Constitutional: alert, oriented Psych: nl mood/affect Head: normocephalic Eyes: nl conjunctiva Respiratory: clear to auscultation, normal air movement Cardiovascular: regular rate and rhythm Gastrointestinal: soft, non-tender Musculoskeletal: nl extremities to inspection Neurological: FISHER HOOP NET II-XII intact, nl mental status, nl speech Skin: nl turgor Results Results 24hrs Laboratory Tests Test 01/24/19 14:09 01/24/19 17:38 01/24/19 20:55 01/25/19 04:37 Urine Color LUCA Urine Clarity CLOUDY A Urine pH 5.0 Urine Specific [place] 1.019 Urine Ketones TRACE A Urine Nitrite NEGATIVE Urine Bilirubin NEGATIVE Urine Urobilinogen NEGATIVE Urine Leukocyte Esterase NEGATIVE Urine Microscopic RBC 3 Urine Microscopic WBC 50 H Urine Cellular Casts FEW A Urine Hyaline Casts FEW A Urine Mucus FEW A Urine Hemoglobin NEGATIVE Urine Random Creatinine 469.83 H Urine Random Sodium < 13 L Urine Glucose NEGATIVE Urine Total Protein 39.0 H Bedside Glucose 102 108 White Blood Count 5.2 # Red Blood Count 3.47 L Hemoglobin 10.8 L Hematocrit 31.5 L Mean Corpuscular Volume 90.8 Mean Corpuscular 31.1 Hemoglobin Mean Corpuscular 34.3 Hemoglobin Concent Red Cell Distribution 14.6 H Width Platelet Count 264 Mean Platelet Volume 9.9 Immature Granulocytes % 4.000 H Neutrophils % 46.5 Lymphocytes % 36.2 Monocytes % 12.5 H Eosinophils % 0.2 Basophils % 0.6 Nucleated Red Blood 0.0 Cells % Immature Granulocytes # 0.210 H Neutrophils # 2.4 Lymphocytes # 1.9 Monocytes # 0.7 Eosinophils # 0.0 Basophils # 0.0 Nucleated Red Blood 0.0 Cells # Sodium Level 145 H Potassium Level 4.3 Chloride Level 115 H Carbon Dioxide Level 20 L Anion Gap 10 # Blood Urea Nitrogen 41 #H Creatinine 1.73 #H Est Glomerular Filtrat 30 L Rate mL/min Glucose Level 94 Hemoglobin A1c 5.7 Calcium Level 9.3 Phosphorus Level 3.3 Magnesium Level 1.5 L Total Bilirubin 0.2 Direct Bilirubin 0.00 Indirect Bilirubin 0.2 Aspartate Amino 21 Transf (AST/SGOT) Alanine 19 Aminotransferase (ALT/SG PT) Alkaline Phosphatase 63 Total Protein 7.0 # Albumin 3.5 # Globulin 3.50 H Albumin/Globulin Ratio 1.00 Triglycerides Level 258 H Cholesterol Level 187 LDL Cholesterol, 118 Calculated HDL Cholesterol 17 L Cholesterol/HDL Ratio 11.0 Thyroid Stimulating 0.408 L Hormone (TSH) Free Thyroxine Index 2.60 Thyroxine (T4) 6.2 Triiodothyronine (T3) 42.0 H Uptake Test 01/25/19 07:50 01/25/19 12:05 Bedside Glucose 96 109 Medications Medication Current Medications Benzocaine (Dermoplast [place]) 1 spray PRN PRN TOP vascular access site; Start 01/24/19 at 13:30 Sodium Chloride 1,000 ml @ 75 mls/hr [id number] IV Last administered on 01/25/19at 06:00; Admin Dose 75 MLS/HR; Start 01/24/19 at 16:07 IV Flush (NS 3 ml) 3 ml PER PROTOCOL IV ; Start 01/24/19 at 16:30 Ondansetron HCl (Zofran Inj) 4 mg Q6H PRN IV NAUSEA/VOMITING; Start 01/24/19 at 16:30 Acetaminophen (Tylenol Tab) 650 mg Q6H PRN PO .PAIN 1-3 OR TEMP; Start 01/24/19 at 16:30 Acetaminophen/ Hydrocodone Bitart ([place] (5/325)) 1 tab Q6H PRN PO .MOD PAIN 4- 6; Start 01/24/19 at 16:30 Morphine Sulfate (morphine) 2 mg Q4H PRN IV .SEVERE PAIN 7-10; Start 01/24/19 at 16:30 Famotidine (Pepcid Iv) 20 mg Q24H IV Last administered on 01/24/19at 21:02; Admin Dose 20 MG; Start 01/24/19 at 21:00 Hydrocortisone (Proctozone-Hc) 1 applic BID HI ; Start 01/24/19 at 21:00 Hydroxyzine HCl (Atarax) 50 mg DAILY PRN PO ITCHING; Start 01/24/19 at 16:30 Metoprolol Tartrate (Lopressor) 25 mg BID PO Last administered on 01/25/19at 08:08; Admin Dose 25 MG; Start 01/24/19 at 21:00 Polyethylene Glycol (Miralax) 17 gm DAILY PO ; Start 01/25/19 at 09:00 Linagliptin (Tradjenta) 5 mg DAILY PO Last administered on 01/25/19at 08:08; Admin Dose 5 MG; Start 01/25/19 at 09:00 Diagnostic Test (Pha) (Accu-Chek) 1 ea AC MEALS AND BEDTIME XX ; Start 01/24/19 at 17:30 Pantoprazole (Protonix Tab) 40 mg DAILY@06 PO Last administered on 01/25/19at 05:59; Admin Dose 40 MG; Start 01/25/19 at 06:00 Atorvastatin Calcium (Lipitor) 10 mg HS PO ; Start 01/25/19 at 21:00 Fish Oil (Fish Oil) 1,000 mg BID PO ; Start 01/25/19 at 21:00 KVNG SPICER NP Jan 25, 2019 14:13
[2019-01-25 14:33] VITALS: BP 127/76; PULSE 74; RESP 20
[2019-01-25] MEDS ORDERED: ATORVASTATIN 10 MG TAB PO SCH (21:00)
[2019-01-25] MEDS: FAMOTIDINE 20 MG INJ IV SCH (21:08)
[2019-01-25] MEDS: FISH OIL 1,000 MG CAP PO SCH (21:08)
[2019-01-25 21:09] VITALS: BP 130/87; PULSE 70; RESP 20
[2019-01-26 01:58] VITALS: BP 140/88; PULSE 67; RESP 18
[2019-01-26] MEDS: PANTOPRAZOLE (EC) 40 MG TAB PO SCH (06:07)
[2019-01-26] MEDS: ACCU-CHEK XX SCH (07:00)
[2019-01-26] MEDS: HYDROCORTISONE 2.5% 30 GM RECT CR PR SCH (08:10)
[2019-01-26] MEDS: FISH OIL 1,000 MG CAP PO SCH (08:10)
[2019-01-26] MEDS: LINAGLIPTIN 5 MG TABLET PO SCH (08:10)
[2019-01-26] MEDS: METOPROLOL 25 MG TAB PO SCH (08:16)
[2019-01-26] MEDS: POLYETHYLENE GLYCOL 17 GM PACKET PO SCH (08:17)
[2019-01-26] MEDS ORDERED: MAGNESIUM SULFATE 2 GM/50 ML 50 ML IVPB ONE (08:30)
--- NOTE | 2019-01-26 08:51 | PN ---
DATE: 01/26/2019 SUBJECTIVE: The patient is stable overnight. No fevers, chills, nausea, vomiting. OBJECTIVE: VITAL SIGNS: Blood pressure is 140/88, respirations 18, pulse 67, temperature 98.6. HEENT: Head is normocephalic. NECK: Supple. HEART: Regular rate. LUNGS: Show diminished breath sounds at the base. ABDOMEN: Soft, nontender to palpation without rebound or guarding. EXTREMITIES: Negative for clubbing, cyanosis. No edema. DERMATOLOGIC: No rashes. MUSCULOSKELETAL: No joint effusion. NEUROLOGIC: No change in exam. MEDICATIONS: The patient's medications have been reviewed. LABORATORY DATA: Has been reviewed. IMAGING STUDIES: Have been reviewed. ASSESSMENT AND PLAN: 1. Nonoliguric acute kidney injury with previously known baseline creatinine. Etiology of acute kid lindsay injury is secondary to volume depletion. The patient's renal function has improved with intraven ous fluids. At this point, will discontinue intravenous hydration. Continue to encourage patient to maintain a regular diet. Will monitor closely. 2. Metabolic acidosis, resolved. 3. Hypernatremia, resolved. 4. Anemia. Monitor hemoglobin and hematocrit levels. 5. Hypomagnesemia. Will replete with magnesium sulfate. 6. Hypertension. The patient is currently normotensive. Continue to monitor. Would avoid angioten sin-converting enzyme inhibitor, nonsteroidal anti-inflammatory drugs at this time. 7. History of diabetes. Continue Accu-Cheks, insulin sliding scale. 8. History of breast cancer. Continue chemotherapy. 9. Anxiety disorder. Continue to monitor. Dictated By: PEDRITO PERALES/NTS Conf#: [id number] DID#: [id number] CC: ALEX RAMIREZ MD;*EndCC*
[2019-01-26] MEDS ORDERED: METO-448 PO ×2 (09:17→10:34)
[2019-01-26] MEDS ORDERED: ATOR10TA65 PO ×2 (09:17→10:34)
--- NOTE | 2019-01-26 09:18 | PDOCDIS ---
Discharge Instructions DIAGNOSIS Discharge Diagnosis 1. Acute renal failure 2. Suspect diabetes 3. Hypertension. 4. History of anxiety CONDITION [id number] Patient Condition: [id number] Stable HOME CARE INSTRUCTIONS: [id number] Diet Instructions: [id number] Low Fat /Cholesterol [id number] Special Diet: [id number] carbohydrate controlled FOLLOW UP/APPOINTMENTS Follow-up Plan 1. Follow up with your primary care provider in one week 2. Follow up with your oncologist in 1 week KVNG SPICER NP Jan 26, 2019 09:18
[2019-01-26] MEDS ORDERED: MAGNESIUM OXIDE 400 MG TAB PO ONE (10:00)
--- NOTE | 2019-01-28 19:03 | DS ---
Date/Time of Note Date/Time of Note DATE: 01/28/19 TIME: 18:55 Discharge Summary Admission/Discharge Info Admit Date/Time Jan 24, 2019 at 14:46 Discharge Date/Time Jan 26, 2019 at 10:35 Discharge Diagnosis 1. Acute renal failure 2. Suspect diabetes 3. Hypertension. 4. History of anxiety Patient Condition: Stable Hospital Course This is a 58-year-old female with history of prediabetes, hypertension, anemia, diagnosis of right breast cancer who was visiting her oncologist today for follow-up to have her labs reviewed and was prompted to go to the hospital for further evaluation of her kidney function. She states that her kidney function was normal prior to admission. She was told that possibly because of her medications at home combination with chemotherapy that her renal function has declined. She came to the hospital she was found to have creatinine of 3.92 and a BUN of 61 with estimated GFR of 12. She denies any dysuria or oliguria. She states that she has normal urination. Patient was with acute renal failure suspect polypharmacy from nephrotoxic agents of her home medications that included CARISSA inhibitor and metformin. We did get renal consult. She was provided with IV fluids and did have good response. We did switch her diabetes medication to Tradjenta while in the hospital. Her A1c was found to be 5.6. During her course of stay she did improve. She was advised for outpatient follow-up with her primary physician. We did advise the patient to follow-up with her physician as well for further monitoring of her diabetes. She was also resumed on beta-elin for high blood pressure. She was placed on anxiolytics as needed for anxiety. During the course of stay he did improve. Plan of care was discussed with the patient and she verbalized understanding. On the day of discharge patient was in stable condition Discussed POC with Dr. Curtis [facility]s Active Scripts Atorvastatin (Atorvastatin) 10 Mg Tablet, 10 MG PO QHS, #30 TAB Prov:KVNG SPICER [employer]TER 01/26/19 Metoprolol Tartrate* (Lopressor*) 25 Mg Tab, 25 MG PO BID, #60 TAB Prov:KVNG SPICER [employer] 01/26/19 Reported Medications Hydrocortisone Acetate* (Anusol-HC*) 30 Gm Cream.gm., 1 APPLIC [place] BID, TUB OR QID NEEDED 7/5/19 Polyethylene Glycol* (Miralax*) 17 Gm Powd.pack, 17 GM PO DAILY, #30 PACKET 01/24/19 Hydroxyzine Hcl* (Hydroxyzine Hcl*) 50 Mg Tablet, 50 MG PO DAILY PRN for ITCHING, #30 TAB 01/24/19 Omeprazole* (Omeprazole*) 20 Mg Capsule.dr, 20 MG PO QPM, #30 CAP 01/24/19 Discontinued Reported Medications Metronidazole* (Metrogel* Vaginal) 0.75% -70 Gram Gel.w.appl, 1 APPFUL VAG HS, TUB 01/24/19 Triamcinolone Acetonide* (Kenalog*) 0.1%-15GM Oint, 1 APPLIC TOP BID, #1 EA 01/24/19 Triamcinolone Acetonide* (Kenalog*) 0.1%-15GM Cr, 1 APPLIC TOP BID, #1 TUB 01/24/19 Metformin Hcl* (Metformin Hcl*) 500 Mg Tablet, 500 MG PO WITH BREAKFAST DINNE, #60 TAB 01/24/19 Lisinopril* (Lisinopril*) 5 Mg Tablet, 5 MG PO DAILY, #30 TAB 01/24/19 Metoprolol Tartrate* (Lopressor*) 25 Mg Tab, 25 MG PO BID, #60 TAB 01/24/19 Aspirin (Aspirin Low Dose) 81 Mg Tablet.dr, 81 MG PO DAILY, #30 TAB 11/21/16 Ranitidine Hcl* (Zantac*) Unknown Strength Tablet, MG PO HS, #30 TAB 11/21/16 Discontinued Scripts Guaifenesin/Codeine Phosphate (CHERATUSSIN AC SYRUP) 118 Ml Liquid, 5 ML PO Q4H PRN for COUGH, #118 ML Prov:HERLINDA RAMIREZ PA-C 10/25/17 Albuterol Sulfate* (Ventolin HFA*) 18 Gm Hfa.aer.ad, 2 PUFF INHALATION Q4H, #1 INHALER Prov:HERLINDA RAMIREZ PA-C 10/25/17 Fluticasone Propionate (Flonase Allergy Relief) 9.9 Ml [place].susp, 1 SPRAY NASAL BID, #1 BOTTLE TO EACH NOSTRIL Prov:HERLINDA RAMIREZ PA-C 10/25/17 Prednisone* (Prednisone*) 20 Mg Tab, 40 MG PO DAILY for 5 Days, TAB Prov:HERLINDA RAMIREZ PA-C 10/25/17 Cetirizine Hcl* (Zyrtec*) 10 Mg Capsule, 10 MG PO DAILY, #14 TAB.CHEW Prov:MYNOR CORTES PA-C 02/16/17 Fluticasone Propionate (Flonase Allergy Relief) 9.9 Ml [place].susp, 1 SPRAY NASAL BID, #1 BOTTLE TO EACH NOSTRIL Prov:MYNOR CORTES PA-C 02/16/17 Triamcinolone Acetonide* (Kenalog*) 0.25%-60 Ml Lotion, 1 APPLIC TOP BID, #1 BOTTLE Prov:LUISA MARTINEZ MD 11/21/16 Triamcinolone Acetonide* (Kenalog*) 0.1%-15GM Cr, 1 APPLIC TOP BID, #1 TUB Prov:LUISA MARTINEZ MD 11/21/16 Naproxen* (Naprosyn*) 500 Mg Tablet, 500 MG PO BID PRN for PAIN AND/OR INFLAMMATION, #30 TAB Prov:LUISA MARTINEZ MD 11/21/16 Follow-up Plan 1. Follow up with your primary care provider in one week 2. Follow up with your oncologist in 1 week Primary Care Provider Not On Staff Doctor Time spent on discharge: > 30 minutes VKNG SPICER NP Jan 28, 2019 19:03
== END 2019-01-26 10:35 | disposition home or self-care (01) | DRG 683 ==
LOC: E/R 11:34 → 2NE 14:46
PROVIDERS: ADMIT Internal Medicine; ATTEND Internal Medicine
DX: N17.9 Acute kidney failure, unspecified (principal); E87.2 Acidosis; I10 Essential (primary) hypertension; C50.911 Malignant neoplasm of unspecified site of right female breast; E11.9 Type 2 diabetes mellitus without complications; D64.9 Anemia, unspecified
CPT/HCPCS: 36415; 76775; 80048; 80053; 80061; 81001; 81003; 82043; 82962; 83036; 83735; 84100; 84155; 84300; 84436; 84443; 84479; 85025; 87086; J2405; J3475; J7030